=== PATIENT | male | born 1985 | race African-American/Black ===

== ENCOUNTER 2016-11-18 13:00 | Emergency (ER) | payer OTHER ==
[2016-11-18 13:14] VITALS: BP 121/68; PULSE 58; TEMP 98; BMI 24.3
[2016-11-18] MEDS ORDERED: IBUPROFEN 600 MG TABLET (FP) PO ONE ×2 (15:33→15:35)
[2016-11-18] MEDS ORDERED: diazePAM 5 MG TABLET PO ONE (16:14)
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
[2016-11-18] MEDS ORDERED: diazePAM 5 MG TABLET ONE (17:21)
== END 2016-11-18 18:00 | disposition home or self-care (01) ==
LOC: JERFT 13:00 → JER 13:00
PROC: 2W3EX1Z Immobilization of Right Hand using Splint (ICD-10-PCS; principal; 2016-11-18)
DX: S52.501A Unspecified fracture of the lower end of right radius, initial encounter for closed fracture (principal); S62.306A Unspecified fracture of fifth metacarpal bone, right hand, initial encounter for closed fracture; V03.90XA Pedestrian on foot injured in collision with car, pick-up truck or van, unspecified whether traffic or nontraffic accident, initial encounter; Y93.89 Activity, other specified; Y92.410 Unspecified street and highway as the place of occurrence of the external cause
CPT/HCPCS: 72070-TC; 72125-TC; 73130-TC-RT; 99281-25